=== PATIENT | male | born 1995 | race Caucasian/White ===

== ENCOUNTER 2022-04-12 00:28 | Emergency (ER) | payer SELFPAY ==
[~2022-04-12] VITALS: Ht 162.6 cm; Wt 101.2 kg
[2022-04-12 00:36] VITALS: BP 133/76
[2022-04-12] MEDS ORDERED: TETANUS, DIPHTHERIA, PERTUSSIS VAC/PF 0.5ML (>10YR OLD) IM ONE (05:00)
[2022-04-12] MEDS ORDERED: LIDOCAINE HCL 1% 20ML VIAL (Pyxis) INJ INFIL ONE (05:00)
== END 2022-04-12 07:35 | disposition home or self-care (01) ==
LOC: ER 00:28
DX: S01.81XA Laceration without foreign body of other part of head, initial encounter (principal); W27.0XXA Contact with workbench tool, initial encounter; Y93.89 Activity, other specified; Y92.89 Other specified places as the place of occurrence of the external cause
CPT/HCPCS: 12011; 90471; 90715; 99283; Z7610